=== PATIENT | female | born 1985 | race Hispanic/Latino ===

== ENCOUNTER 2017-07-13 16:20 | Emergency (ER) | payer MEDICAID, OTHER ==
[2017-07-13 16:20] VITALS: BMI 50.8
[2017-07-13] MEDS ORDERED: Sodium Chloride 0.9% 500 ML IV ONE ×2 (17:09→17:48)
--- NOTE | 2017-07-13 17:28 | C.PDOC ---
History Of Present Illness Patient presents to ED c/o nonproductive cough, runny nose, sore throat, body aches for several weeks. She also c/o headache x 2 days. Patient is currently approx 7 months , . She states her first preganncy was delivered via emergency at approx 8 months due to preeclampsia (patient had headache, elevated BP, visual changes at this time). Patient's currently ob/ magician/illusionist is Dr. Marinelli, has been following her closely. She has not officially been diagnosed with preeclampsia during this , and is not currently on any BP medications. However she mentions her continuous miner was considering starting labetolol and doing 24 hr urine test. Time Seen by Provider: 07/13/17 16:48 Chief Complaint (Nursing): Cough, Cold, Congestion History Per: Patient History/Exam Limitations: no limitations Onset/Duration Of Symptoms: Days Current Symptoms Are (Timing): Still Present Severity: Mild Past Medical History Reviewed: Historical Data, Nursing Documentation, Vital Signs Vital Signs: Last Vital Signs Temp 98.3 F 07/13/17 19:37 Pulse 105 H 07/13/17 19:37 Resp 20 07/13/17 19:37 BP 136/83 07/13/17 19:37 Pulse Ox 98 07/13/17 19:37 - Medical History PMH: Asthma, Kidney Stones Other PMH: preeclampsia (during first ) Surgical History: (x 1) - [facility] OTHER SKIN & SUBQ I D (08/06/13) TETANUS TOXOID ADMINIST (08/06/13) Family History: States: Diabetes - Social History Hx Tobacco Use: No Hx Alcohol Use: No Hx Substance Use: No - Immunization History Hx Tetanus Toxoid Vaccination: No Hx Influenza Vaccination: No Hx Pneumococcal Vaccination: No Review Of Systems Except As Marked, All Systems Reviewed And Found Negative. Constitutional: Positive for: Malaise, Other (body aches ). Negative for: Fever , Chills ENT: Positive for: Nose Congestion, Throat Pain Cardiovascular: Negative for: Chest Pain, Palpitations Respiratory: Negative for: Shortness of Breath Gastrointestinal: Negative for: Nausea, Vomiting, Abdominal Pain, Diarrhea Neurological: Positive for: Headache. Negative for: Weakness, Numbness, Dizziness Physical Exam - Physical Exam Appears: Well, Non-toxic, No Acute Distress Skin: Normal Color, Warm, Dry, No Rash Eye(s): bilateral: Normal Inspection Oral Mucosa: Moist Cardiovascular: Rhythm Regular (tachycardic ) Respiratory: Normal Breath Sounds, No Rales, No Rhonchi, No Wheezing Gastrointestinal/Abdominal: Bowel Sounds, Soft, No Tenderness, Other (gravid ) Extremity: Bilateral: Atraumatic, Normal Color And Temperature, Normal ROM Pulses: Left Dorsalis Pedis: Normal, Right Dorsalis Pedis: Normal Neurological/Psych: Oriented x3 ED Course And Treatment - Laboratory Results Result Diagrams: 07/13/17 17:31 07/13/17 17:31 O2 Sat by Pulse Oximetry: 98 (RA) Pulse Ox Interpretation: Normal Progress Note: Blood work, UA, influenza swab ordered and reviewed. Reevaluation Time: 19:15 Reassessment Condition: Improved (Patient well appearing, states she feels better. Vitals improved.) - Physician Consult Information Physician Contacted: Lulu A Paul Outcome Of Conversation: Discussed patient with continuous miner, recommends 24 hour urine collection and follow up with Dr. Robles Sunday without fail. Patient given urine collection bottle (obtained from lab), and handwritten Rx from ar for 24 hr urine collection. She understands follow up plan, and that she should return to ED immediately if she has any concerning symptoms. Disposition Counseled Patient/Family Regarding: Studies Performed, Diagnosis, Need For Followup, Rx Given - Disposition Referrals: [facility] [Outside] Disposition: HOME/ ROUTINE Disposition Time: 19:15 Condition: STABLE Additional Instructions: FOLLOW UP WITH DR ROBLES ON SUNDAY WITHOUT FAIL DO OUTPATIENT 24 HOUR URINE COLLECTION, AND BRING BACK TO OUTPATIENT TESTING RETURN TO ER IMMEDIATELY IF SYMPTOMS WORSEN Prescriptions: Acetaminophen [Tylenol 325mg tab] 650 mg PO Q6 PRN #30 tab PRN Reason: pain/fever Forms: [facility] (Lao), General Discharge Instructions Print Language: NEPALI - POA Present On Arrival: None - Clinical Impression Clinical Impression: , Proteinuria affecting in third trimester, Viral syndrome Procedure: Bedside Ultrasound - Time Performed Time Performed: 18:10 - Time Out Time Out: Side verified - Type of Ultrasound Type of Ultrasound:: Pelvic(transabd.) - Consent Obtained Consent obtained: Verbal - Performed by Performed by: Attending Physician - Indication Indications:: Other ( heart tones) - Pelvic Pelvic:: heart beat (148bpm)
[2017-07-13 17:35] LABS: BASO % 0.6 % (0.0-2.0); EOS # 0.1 K/uL (0.0-0.7); EOS % 1.3 % (0.0-4.0); HEMATOCRIT 36.4 % (34.0-47.0); LYMPH # 1.2 K/uL (1.0-4.3); LYMPH % 17.5 % (20.0-40.0); MEAN CELL VOLUME 86.7 fL (81.0-99.0); MEAN CORPUSCULAR HEMOGLOBIN 28.8 pg (27.0-31.0); MEAN CORPUSCULAR HGB CONC 33.3 g/dL (33.0-37.0); MONO # 0.9 K/uL (0.0-0.8); MONO % 12.5 % (0.0-10.0); RED CELL DISTRIBUTION WIDTH 15.2 % (11.5-14.5); WHITE BLOOD COUNT 6.8 K/uL (4.8-10.8)
[2017-07-13 17:57] LABS: ALB/GLOB RATIO 1.1 (1.0-2.1); ALKALINE PHOSPHATASE 78 U/L (38-126); ALT/SGPT 47 U/L (9-52); AST/SGOT 33 U/L (14-36); BILIRUBIN,TOTAL 0.6 mg/dL (0.2-1.3); BLOOD UREA NITROGEN 6 mg/dL (7-17); CALCIUM 8.5 mg/dl (8.6-10.4); CARBON DIOXIDE 24 mmol/L (22-30); CHLORIDE 100 mmol/L (98-107); GFR AFRICAN-AMERICAN > 60; GLUCOSE,RANDOM 169 mg/dL (65-105); POTASSIUM 3.6 mmol/L (3.6-5.2); SODIUM 133 mmol/L (132-148); TOTAL PROTEIN 6.5 g/dL (6.3-8.3)
[2017-07-13 18:06] LABS: RBC URINE 2 /hpf (0-3); TRANSITIONAL EPITHIAL < 1 /hpf (0-3); URINE BACTERIA RARE (<OCC); URINE BILIRUBIN NEGATIVE (NEGATIVE); URINE BLOOD NEGATIVE (NEGATIVE); URINE CALCIUM OXALATE CRYSTALS OCC /hpf (<OCC); URINE COLOR Yellow (YELLOW); URINE GLUCOSE (UA) 1+ mg/dL (Normal); URINE KETONE TRACE mg/dL (NEGATIVE); URINE LEUKOCYTE ESTERASE NEG Leu/uL (Negative); URINE PROTEIN 1+ mg/dL (NEGATIVE); URINE UROBILINOGEN NORMAL mg/dL (0.2-1.0); WBC URINE 2 /hpf (0-5)
[2017-07-13 18:28] VITALS: O2SAT 98
[2017-07-13 19:42] VITALS: BP 136/83; PULSE 105; RESP 20; TEMP 98.3
== END 2017-07-13 19:42 | disposition home or self-care (01) ==
LOC: C.ER 16:20
DX: O12.13 Gestational proteinuria, third trimester (principal); Z3A.28 28 weeks gestation of pregnancy; B34.9 Viral infection, unspecified
CPT/HCPCS: 80053; 81001; 85025; 86308; 87804; 96360; 99285; J7040